=== PATIENT | female | born 1970 | race Caucasian/White ===

== ENCOUNTER 2016-11-17 07:14 | Emergency (ER) | payer OTHER ==
[~2016-11-17] VITALS: Ht 160 cm; Wt 90.7 kg
--- NOTE | ~2016-11-17 | CT4 ---
[facility] A Service of [facility] RADIOLOGY TEXT RESULTS PATIENT: ESME EDDY LOCATION: [facility] : 66 UNIT #: [id number] AGE: [address]: Jasbir Lehman MD SEX: F ORDER DR: [id number] [facility] [address] [place], [place] [address] [id number] MR#: [id number] Acc #: [id number] NAME: ESME EDDY : 1970 SEX: F STUDY DATE/TIME: 11/17/2016 9:27 UNIT: [facility] ROOM: STUDY DESCRIPTION: CT Abd and Pelv Wo Cont Attending Physician: Jasbir Lehman M.D. Ordering Physician: Jasbir Lehman M.D. Primary Care Physician: Primary Care Physician No MEDICAL IMAGING REPORT This report is preliminary unless electronic signature is present EXAM CT of the abdomen and pelvis without contrast INDICATION Right-sided abdominal pain, nausea and right lower quadrant tenderness. TECHNIQUE Axial CT images were obtained from the dome of the diaphragm through the symphysis pubis. No oral or intravenous contrast material was administered. This CT examination was performed with one or more of the following radiation dose reduction techniques: automatic exposure control, adjustment of mA and/or kV according to patient size, and iterative reconstruction. FINDINGS Images through the lung bases demonstrate some minimal bibasilar atelectasis. Patient has a 5 mm stone identified within the mid-right ureter. Distal to this, the ureter is decompressed. No bladder stones were seen. There is some mild periureteral soft tissue stranding. Correlation with urinalysis and urine cultures is recommended. No stones are identified within the kidneys themselves. Spleen, stomach, pancreas, adrenal glands and gallbladder all appear normal. Liver is enlarged measuring up to 16 cm in craniocaudal dimensions. Patient has 2 duodenal diverticula. One located within the second portion of the duodenum and the other located within the third portion of the duodenum. No free fluid or adenopathy is seen within the abdomen. The appendix is visualized and is within normal limits. There is no evidence of mechanical bowel obstruction. Urinary bladder appears unremarkable. Patient does have an IUD within the uterus. There is also a uterine fibroid identified. No aggressive osseous abnormalities are seen. [facility] A Service of [facility] RADIOLOGY TEXT RESULTS PATIENT: ESME EDDY [id number] 66 UNIT #: [id number] AGE: [address]: Jasbir Lehman MD SEX: F ORDER DR: IMPRESSION 1. This patient has [id number] right-sided hydroureteronephrosis which is secondary to an obstructing stone seen within the mid right ureter measuring about 5 mm in size. Distal to this, the ureter is decompressed. There is some mild periureteral soft tissue stranding. Correlation with urinalysis and urine cultures is recommended. 2. No stones are identified within either kidney and no stones are seen within the bladder. 3. The appendix is visualized and is within normal limits. 4. Hepatomegaly of uncertain clinical significance. 5. Uterine fibroid and intrauterine device as noted above. Dictated by... Cassidy Mireles M.D. THIS IS AN ELECTRONICALLY VERIFIED REPORT Cassidy Mireles M.D. at 11/18/2016 5:02 PM MARIE/sona TD: 11/18/2016 10:37 JOB #: [id number] MEDICAL IMAGING REPORT Page 1 of 1 COPY
[~2016-11-17 07:14] MED LIST: FLEXERIL10 MG PO; NAPROSYN500 MG PO
[2016-11-17 07:52] LABS: URINE SOURCE CLEAN CATCH
[2016-11-17 08:02] LABS: URINE APPEARANCE TURBID; URINE BILIRUBIN NEG (NEG); URINE BLOOD 3+ (NEG); URINE COLOR DK YELLOW; URINE GLUCOSE NEG (NEG); URINE KETONE NEG (NEG); URINE LEUKOCYTE ESTERASE 2+ (NEG); URINE NITRATE NEG (NEG); URINE PROTEIN 1+ (NEG); URINE SPECIFIC GRAVITY 1.031 (1.003-1.035)
[2016-11-17 08:04] LABS: CULTURE INDICATED? YES; URBCS1 AUWI 50-100 /[HPF] (0-2); URINE BACTERIA AUWI 4+ (NEGATIVE); URINE SQUAMOUS EPITHELIAL CELL MANY /[HPF]; UWBCS1 AUWI 50-100 (0-5)
[2016-11-17 08:38] LABS: BASOPHIL% 0.3 % (0-2.5); EOSINOPHIL# 0.1 X10e3 (0-0.7); EOSINOPHIL% 0.5 % (0.0-7.0); HEMATOCRIT 42.2 % (35.0-45.0); LYMPHOCYTE# 1.1 X10e3 (1.0-3.5); LYMPHOCYTE% 10.1 % (17.0-45.0); MEAN CELL VOLUME 85.1 FL (83-96); MEAN CORPUSCULAR HEMOGLOBIN 28.2 PG (28-34); MEAN CORPUSCULAR HGB CONC 33.1 g/dL (30-36); MEAN PLATELET VOLUME 9.6 FL (6.5-11.5); MONOCYTE# 0.4 X10e3 (0-1.0); MONOCYTE% 3.9 % (3.0-12.0); NEUTROPHIL# 8.9 X10e3 (1.5-7.1); NEUTROPHIL% 85.2 % (40-75); PLATELET COUNT 285 X10e3 (140-420); RED BLOOD COUNT 4.96 X10e (3.90-5.30); RED CELL DISTRIBUTION WIDTH 13.1 % (11.0-15.5); WHITE BLOOD COUNT 10.4 X10e3 (4.0-10.5)
[2016-11-17 08:40] LABS: DIFF IND NO
[2016-11-17 09:05] LABS: ALBUMIN SERUM 4.2 g/dL (3.5-5.0); BILIRUBIN, DIRECT 0.1 mg/dL (0.0-0.2); BILIRUBIN,INDIRECT 0.8 mg/dL (0.0-0.9); BILIRUBIN,TOTAL 0.9 mg/dL (0.2-2.0); BUN/CREATININE RATIO 15.55; CALCIUM SERUM 8.8 mg/dL (8.4-10.2); CREATININE SERUM 0.9 mg/dL (0.6-1.4); GLOM FILT RATE Estimated 75.7 mL/min (>60); POTASSIUM 3.6 mmol/L (3.5-5.1); PROTEIN TOTAL SERUM 7.7 g/dL (6.0-8.3)
== END 2016-11-21 06:59 | disposition home or self-care (01) ==
LOC: CED 07:14
PROVIDERS: Emergency Medicine
DX: N13.2 Hydronephrosis with renal and ureteral calculous obstruction (principal)
CPT/HCPCS: 36415; 74176; 80048; 80076; 81003; 82150; 83690; 84703; 85025; 87086; 96361; 96374; 96375; 99284; J1885; J2405